=== PATIENT | male | born 1970 | race Caucasian/White ===

== ENCOUNTER 2024-03-31 11:24 | Emergency (ER) | payer OTHER, SELFPAY ==
[2024-03-31 11:25] VITALS: BMI 31.6
[2024-03-31 11:39] VITALS: BP 156/106
--- NOTE | 2024-03-31 11:39 | ED.GENMED ---
History of Present Illness
General
Chief Complaint: Blood Pressure Problem
Source: patient, ambulance crew and other ([facility] staff)
Exam Limitations: none
Time Seen by Provider: 03/31/24 11:29
Nursing documentation reviewed up to this point in time: agreed with
History of Present Illness
History of Present Illness:
53-year-old male with past medical history of hypertension, hyperlipidemia who presents from [facility] for evaluation of hypertension. Patient says that he feels fine�'I do not know why I am here.' I spoke with the staff
at [facility] they report that for the past few days he has been refusing to take any of his medications. Patient admits that he was previously on lisinopril as well as cholesterol medication and Abilify. He says that he
feels better when he does not take his medicine and so he does not want to take it. According to present staff his blood pressures have been running high and given his reported noncompliance they sent him to the emergency room to be evaluated.
Present staff also reports the patient has been 'selective' with most foods he eats and they are concerned he could be going on a hunger strike. He says that he is not on a hunger strike but that he is picking and choosing what foods he eats
because certain foods appear to be very greasy and he thinks that they could be poison or bad for him.
Past History
Past History
ED Past Medical History: HTN and Other (generalized anxiety disorder.)
Social History
Tobacco: Smoker
Living: with family
Review of Systems
Review of Systems
All Other Systems: ROS reviewed and negative except as documented in HPI and ROS
Constitutional: Denies fever
Respiratory: Denies trouble breathing
Cardiac: Denies chest pain
ABD/GI: Denies abdominal pain
Musculoskeletal: Denies neck pain or back pain
Neurological: Denies dizzy or headache
Phy Exam
Physical Exam
Physical Exam:
General: Awake, alert, oriented x3; no acute distress
Head: Normocephalic, atraumatic
Eyes: Conjunctiva normal, pupils equal round and reactive to light bilaterally
Throat: Airway intact, handling secretions
Neck: Trachea midline, supple without meningismus
Lungs: Clear to auscultation bilaterally, no wheezing, rales, rhonchi
Heart: Regular rate and rhythm, no murmurs, gallops, or rubs
Abd: Soft, non distended, nontender
Neuro: Cranial nerves intact, speech fluent, no motor or sensory deficits
Skin: no rash
Extremities: No edema in extremities, equal pulses in all extremities warm and well-perfused
Psych: Bizarre affect, reasonable insight
Scores
Heart Failure Risk
Heart Failure Risk Score: Not Applicable
Heart Score for Chest Pain Patients
STEMI patient?: Not applicable
Withdrawal Assessment of Alcohol
Withdrawal Assessment Completed?: Not applicable
Course
Orders/Labs/Results
Orders:
Orders
03/31/24 11:38
Electrocardiogram (*1) Urgent
Reason for Study: Hypertension, Benign
EKG- Treatment ONCE
03/31/24 11:42
Basic Metabolic Panel Urgent
Complete Blood Count/No Diff Urgent
Abnormal Lab Results
03/31/24
11:42
WBC 12.6 H 10^3/uL
(4.8-10.8)
MCH 31.3 H pg
(27.0-31.0)
MPV 12.8 H fL
(7.4-10.4)
BUN 26 H mg/dl
(9-20)
Glucose 115 H mg/dl
(70-99)
03/31/24 11:42
03/31/24 11:42
Vital Signs
Initial and Last Documented VS:
Initial Vital Signs
Temp Pulse Resp Pulse Ox
36.9 C 95 20 95
03/31/24 11:27 03/31/24 11:27 03/31/24 11:27 03/31/24 11:27
Last Documented Vital Signs
Temp Pulse Resp BP Pulse Ox
36.9 C 95 20 156/106 95
03/31/24 11:27 03/31/24 11:27 03/31/24 11:27 03/31/24 11:39 03/31/24 11:27
MDM/Problems Addressed
Differential Diagnosis Includes:
Hypertension
MDM/Problems Addressed:
53-year-old male presents to the emergency room from [facility] for evaluation of asymptomatic hypertension in the setting of noncompliance with his blood pressure medicine. Supposed to be taking lisinopril 10 mg p.o. daily but has been refusing for
the past few days according to present staff. He says that he is not taking it because he feels better when he is not taking it. He does not feel he needs it and is not worried about his blood pressure. I explained to him that if he leaves his
blood pressure elevated and does not treat it that he is putting himself at risk for heart attack and stroke which can cause or disability. He says 'I understand, I am not going to live forever and I do not want to take that medicine.' While
I disagree with his decision he does seem to have decision-making capacity at this point. He can fully explain back to me the dangers of leaving his blood pressure untreated as well as his rationale for not wanting to take his medicine. Will check
a screening EKG and blood work for completeness but we cannot force him to take his medicine--I reinforced however that it is my strong recommendation that he take his blood pressure elevation very seriously and that he take his medicine.
Regarding possible hunger strike�I discussed with [facility] staff there are concerns; he does make some odd remarks about his food sounds like his main concern is that is very greasy although he did briefly mention concern that it could be poisoned. I
asked if they were concerned that he might need psychiatric evaluation for this issue and they said that they are 'looking into it.' They do have access to psychiatric consultation there which they will consider; I spoke with our psychiatrist on
staff. Confirmed that they have access to psychiatric services. He appears well-nourished here and does not appear to be dehydrated.
Labs reviewed: CBC shows marginal leukocytosis�no signs or symptoms of infection. BMP no clinically significant abnormalities. Blood pressure elevated but only marginally. [facility] at this point I think he can be
discharged to present although I did recommend psychiatric assessment there if there are continued concerns about his behavior/refusal of treatment.
Chronic conditions affecting care:
Hypertension
Acute Exacerbation and/or Progression of Chronic Illness: HTN
*Pulse Oximetry
Patient hypoxic: no
*Critical Care Note
Total Time (30-74mins, 75-104mins- exclusive of procedures): Not Applicable
Data Reviewed
Source: patient and other ([facility] staff)
ED Attending Note
-
Portions of this chart may have been created with voice recognition software.� Occasional wrong word or��sound alike� substitutions may have occurred due to the inherent limitations of voice recognition software.
Discharge Plan
Departure
Patient Disposition: [facility]
Date of Disposition: 03/31/24
Time of Disposition: 12:31
Patient with high blood pressure during this ER visit?: Yes
Discharge Problem:
Hypertension
Instructions: BLOOD PRESSURE
Prescriptions:
No Action
Tricor:
PO DAILY
Abilify
5 mg PO DAILY
Aspir-Low
81 mg PO DAILY
Lisinopril
10 mg PO DAILY
Propranolol
20 mg PO DAILY
Referrals:
[facility] [Family Provider] - Follow up in 2-3 days
Activity Restrictions/Additional Instructions:
We strongly recommend that you take your blood pressure medicine�your blood pressure has been high and if you leave your blood pressure untreated it will lead to serious medical problems such as heart attack, stroke, or kidney failure.
Patient is medically cleared to return to [facility]; we recommend consultation with [facility] psychiatric team with any concerns regarding his behavior/refusal of care
Thank you for visiting the Emergency Department at [facility].
1. Please schedule a follow up appointment as directed. Call first thing tomorrow morning to make an appointment.
2. If indicated, please take your medications as instructed and indicated on discharge paperwork.
3. If any of your symptoms do not improve, or persist, or become more severe within 6-12 hours, please return to the emergency department for further care.
4. Please return to the emergency department if you develop a headache, neck pain/stiffness, fever greater than 100.4F, chest pain, shortness of breath, persistent nausea, vomiting, slurred speech, difficulty walking, numbness/tingling, weakness,
signs of infection or any other symptoms that are worrisome to you.
Please call [phone] if you have any questions.
Interventions
Interventions:
*Risk Screen - Suicide Last Done: 03/31/24 11:27
*General Assessment Last Done: 03/31/24 11:27
*Neglect/Abuse Screening Last Done: 03/31/24 11:27
ED- Cardiac Assessment Last Done: 03/31/24 11:50
ED- Neurological Assessment Last Done: 03/31/24 11:50
ED- Pulmonary Assessment Last Done: 03/31/24 11:50
Discharge Date and Time
Print Language: OCCITAN
[2024-03-31 11:52] LABS: Hematocrit 51.1 % (39.0-52.0); Hemoglobin 17.8 g/dL (13.0-18.0); Mean Corp Hgb Conc. 34.8 g/dL (33.0-37.0); Mean Corpuscular Hgb 31.3 pg (27.0-31.0); Mean Platelet Volume 12.8 fL (7.4-10.4); Platelet Count 206 10^3/uL (130-400); Red Blood Cell Count 5.68 10^6/uL (4.70-6.10); Red Cell Dist. Width 12.8 % (11.5-14.5); White Blood Cell Count 12.6 10^3/uL (4.8-10.8)
[2024-03-31 12:03] LABS: Blood Urea Nitrogen 26 mg/dl (9-20); Calcium 9.6 mg/dl (8.4-10.2); Carbon Dioxide 26 mmol/L (22-30); Chloride 106 mmol/L (98-107); Estimated Creatinine Clearance 107 ml/min; Glucose 115 mg/dl (70-99); Potassium 4.2 mmol/L (3.5-5.1); Sodium 143 mmol/L (135-145); eGFR > 60.00
[2024-03-31 12:43] VITALS: BP 145/96
== END 2024-03-31 12:47 ==
LOC: EMR 11:24
PROVIDERS: EMERGENCY PHYSICIAN Emergency Medicine
DX: I10 Essential (primary) hypertension (principal); E78.00 Pure hypercholesterolemia, unspecified; F41.1 Generalized anxiety disorder; F17.200 Nicotine dependence, unspecified, uncomplicated
CPT/HCPCS: 99283; 80048; 85027; 93005

== ENCOUNTER 2024-04-07 11:30 | Emergency (ER) | payer OTHER, SELFPAY ==
[2024-04-07 11:41] VITALS: BP 159/112
--- NOTE | 2024-04-07 13:05 | ED.GENMED ---
History of Present Illness
General
Chief Complaint: Psychiatric Problem
Source: patient and records
Exam Limitations: none
Time Seen by Provider: 04/07/24 12:29
Nursing documentation reviewed up to this point in time: agreed with
History of Present Illness
History of Present Illness:
53-year-old male hypertension mental illness been incarcerated for few weeks second visit in the ER for not eating tells me that the food is contaminated
Apparently not taking his blood pressure meds as well here few days ago with similar complaints, he knows he is at the hospital knows the year, he lives locally when he is not incarcerated
Past History
Past History
ED Past Medical History: HTN, Psychiatric and Other (generalized anxiety disorder.)
Social History
Tobacco: Smoker
Alcohol: None
Drug: None
Living: nursing home
Employment: Not employed
Review of Systems
Review of Systems
All Other Systems: Not applicable
EENT: Reports no symptoms
Respiratory: Reports no symptoms
Cardiac: Reports no symptoms
ABD/GI: Reports no symptoms
Psychiatric: Reports other (Somewhat delusional); Denies depression or suicidal
Phy Exam
Physical Exam
Physical Exam:
Physical Exam
General: no apparent distress, not acutely ill
Neck: No jaundice
Heart: s1/s2 regular rate and rhythm, no murmur. equal radial pulses.
Lungs: no acute respiratory distress. clear bilaterally
Abdomen: Nontender
Neuro: alert and oriented. no focal neurological deficits
Skin: no rash
Psychiatric: well kept. interactive and cooperative
Extremities: no edema. no calf tenderness. negative homans. good distal pulses
Course
Orders/Labs/Results
Orders:
Orders
04/07/24 12:55
Lisinopril [Zestril] 10 mg PO NOW STA
04/07/24 12:29
04/07/24 12:29
Vital Signs
Initial and Last Documented VS:
Initial Vital Signs
Temp Pulse Resp BP Pulse Ox
97.7 F 89 18 159/112 97
04/07/24 11:41 04/07/24 11:41 04/07/24 11:41 04/07/24 11:41 04/07/24 11:41
Last Documented Vital Signs
Temp Pulse Resp BP Pulse Ox
97.7 F 92 18 160/108 97
04/07/24 11:41 04/07/24 14:11 04/07/24 14:11 04/07/24 14:11 04/07/24 11:41
MDM/Problems Addressed
Differential Diagnosis Includes:
Hypertension mental illness
MDM/Problems Addressed:
Mental illness, malingering,
Chronic conditions affecting care:
Hypertension mental illness
*Critical Care Note
Total Time (30-74mins, 75-104mins- exclusive of procedures): Not Applicable
Update Note
Update Note:
Update no signs of significant malnourishment
Patient tells me he will eat some hospital food, he is refused blood work
Labs were few days ago are noted blood pressure is up today we will see if he will take his lisinopril
Update, patient refused to take lisinopril
He refused to eat blood pressure improved
ED Attending Note
-
Portions of this chart may have been created with voice recognition software.� Occasional wrong word or��sound alike� substitutions may have occurred due to the inherent limitations of voice recognition software.
Discharge Plan
Departure
Patient Disposition: Nursing Home
Date of Disposition: 04/07/24
Time of Disposition: 14:16
Patient with high blood pressure during this ER visit?: Yes
Condition: Good
Discharge Problem:
Refuses to eat, Hypertension
Instructions: Schizophrenia (DC)
Prescriptions:
No Action
Tricor:
PO DAILY
Abilify
5 mg PO DAILY
Aspir-Low
81 mg PO DAILY
Lisinopril
10 mg PO DAILY
Propranolol
20 mg PO DAILY
Referrals:
[facility] [Family Provider] -
Interventions
Interventions:
*Risk Screen - Suicide Last Done: 04/07/24 12:23
*General Assessment Last Done: 04/07/24 12:23
*Neglect/Abuse Screening Last Done: 04/07/24 12:23
ED- Fall Risk Assessment Last Done: 04/07/24 12:23
*ED COVID-19 Vaccine History Last Done: 04/07/24 12:23
ED-Psychological Assessment Last Done: 04/07/24 12:56
Discharge Date and Time
Print Language: ROMANIAN
[2024-04-07 14:11] VITALS: BP 160/108
== END 2024-04-07 14:40 ==
LOC: EMR 11:30
PROVIDERS: EMERGENCY PHYSICIAN Emergency Medicine
DX: F22 Delusional disorders (principal); F50.89 Other specified eating disorder; Z76.5 Malingerer [conscious simulation]; Z91.128 Patient's intentional underdosing of medication regimen for other reason; F41.1 Generalized anxiety disorder; I10 Essential (primary) hypertension; E11.9 Type 2 diabetes mellitus without complications; E78.5 Hyperlipidemia, unspecified; F17.200 Nicotine dependence, unspecified, uncomplicated
CPT/HCPCS: 99282

== ENCOUNTER 2024-04-17 12:06 | Emergency (ER) | payer OTHER, SELFPAY ==
[2024-04-17 12:11] VITALS: BP 119/98
--- NOTE | 2024-04-17 14:19 | ED.GENMED ---
History of Present Illness
General
Chief Complaint: Dehydration Symptoms
Source: patient and other ([facility] medical team)
Time Seen by Provider: 04/17/24 12:39
History of Present Illness
History of Present Illness:
53-year-old male from [facility] who presents after he was refusing to eat and drink. He has a 304 hearing tomorrow planned. He had told staff over there that he be willing to drink hospital water. Patient states that the shelter has
strict 9, sperm and fentanyl in the water and he refuses to drink it. Patient states that he does not trust our IV fluids. During history taking he does state he will drink her water small sodas ice chips in it. He does acknowledge that his mouth
is dry and that he is likely dehydrated but otherwise feels normal and that he has a right to refuse it. He reportedly has not been taking his medications as well. He is currently in a mental health wing at the shelter
Past History
Past History
ED Past Medical History: HTN, Psychiatric and Other (generalized anxiety disorder. Question bipolar)
Social History
Tobacco: Smoker
Alcohol: None
Drug: None
Living: shelter
Employment: Not employed
Phy Exam
Physical Exam
Physical Exam:
CONSTITUTIONAL Patient alert and oriented to person, place and time. Well-appearing. Vital signs reviewed. Dry mucous membranes, mucosa is severely dry in the mouth and oropharynx
HEAD atraumatic, normocephalic.
EYES eyelids normal to inspection, Pupils equally round and reactive to light, Extraocular muscles intact, Conjunctiva normal, Sclera normal.
NECK normal range of motion, Trachea midline, no jugular venous distention.
RESPIRATORY CHEST No respiratory distress noted, Chest expansion equal, Bilateral breath sounds clear.
CARDIOVASCULAR regular rate and rhythm, Heart sounds normal.
ABDOMEN abdomen nontender, Bowel sounds normal. No distention.
UPPER EXTREMITY range of motion normal, Motor strength normal, no cyanosis, no edema.
LOWER EXTREMITY range of motion normal, Motor strength normal, no cyanosis, no edema.
NEURO Speech normal, No focal motor deficits, [place] coma scale 15, Memory normal, Cranial Nerves intact to screening exam.
SKIN skin warm, dry, and normal in color.
PSYCHIATRIC patient oriented to person place and time, clearly paranoid
Course
Orders/Labs/Results
Orders:
Orders
04/17/24 13:15
Complete Blood Count/With Diff Urgent
Comprehensive Metabolic Panel Urgent
Magnesium Urgent
04/17/24 14:19
PSYCHIATRY CONSULT Urgent
Consulting Provider: Tyson Moore
Was physician already notified: Yes
Vital Signs
Initial and Last Documented VS:
Initial Vital Signs
Temp Pulse Resp BP Pulse Ox
95.7 F L 111 18 119/98 98
04/17/24 12:11 04/17/24 12:11 04/17/24 12:11 04/17/24 12:11 04/17/24 12:11
Last Documented Vital Signs
Temp Pulse Resp BP Pulse Ox
95.7 F L 111 18 119/98 98
04/17/24 12:11 04/17/24 12:11 04/17/24 12:11 04/17/24 12:11 04/17/24 12:11
MDM/Problems Addressed
MDM/Problems Addressed:
Paranoia psychiatric behavior, dehydration, dry mucous membrane
*Pulse Oximetry
Patient hypoxic: no
*Critical Care Note
Total Time (30-74mins, 75-104mins- exclusive of procedures): 40 minutes
Data Reviewed
Review of Other/Old Records Reveals: Labs (Prior labs reviewed)
Source: patient and police
Prescriptions/Medications Considered But Not Given:
IV fluids consider if patient refuses
Further Testing Considered But Not Given:
Consider labs but the patient refuses
Patient Management
Escalation/DeEscalation of care consider admission/obs:
Complicated cases patient adamantly refused IV fluids and oral fluids. At this point he is awake alert and oriented. He does have some paranoia and psychosis that is being handled at the shelter. He is for a 304 hearing tomorrow. Patient was also
seen by psychiatry who did not have anything more to add. I did explain to him the risk of severe dehydration. At this point I do see feel that it is warranted that we send him back to shelter for further psychiatric care. The patient is not in
extreme danger at this time but at some point will need hydration. Case was discussed with medical team at the shelter who will follow closely for his 304 hearing tomorrow
ED Attending Note
-
Portions of this chart may have been created with voice recognition software.� Occasional wrong word or��sound alike� substitutions may have occurred due to the inherent limitations of voice recognition software.
Discharge Plan
Departure
Patient Disposition: Home (Routine Discharge)
Date of Disposition: 04/17/24
Time of Disposition: 14:40
Patient with high blood pressure during this ER visit?: Yes
Discharge Problem:
Paranoid psychosis, Acute dehydration
Instructions: Dehydration, Adult (DC), BLOOD PRESSURE
Prescriptions:
No Action
Tricor:
PO DAILY
Abilify
5 mg PO DAILY
Aspir-Low
81 mg PO DAILY
Lisinopril
10 mg PO DAILY
Propranolol
20 mg PO DAILY
Referrals:
[facility] [Family Provider] -
Activity Restrictions/Additional Instructions:
Please see medical staff tomorrow as planned for further psychiatric evaluation. Please consider oral hydration as it is extremely important to maintain your hydration. Return immediately for any changes in mentation
Interventions
Interventions:
*Risk Screen - Suicide Last Done: 04/17/24 12:11
*General Assessment Last Done: 04/17/24 12:11
*Neglect/Abuse Screening Last Done: 04/17/24 12:11
*ED COVID-19 Vaccine History Last Done: 04/17/24 12:11
ED- Cardiac Assessment Last Done: 04/17/24 12:11
ED- Neurological Assessment Last Done: 04/17/24 12:11
ED- Pulmonary Assessment Last Done: 04/17/24 12:11
Discharge Date and Time
Print Language: QATARI
--- NOTE | 2024-04-17 15:25 | W.PN.UPDATE ---
Update Note
Progress Note Update
Pt brought over from [facility] due to refusing to eat or drink, reportedly has paranoid ideation about contaminants in the [facility] water. Pt has 304 hearing tomorrow; unclear what treatment he has received under 303. Psychiatry asked to assess. Upon
approach pt resting on stretcher in handcuffs and waist restraint. Pt alert, calm, making eye contact, alert. Pt uncooperative, immediately stated I was lying to him, that I was pretending there was some other reality, stated I know what is going
on. No agitation or threatening behavior. Speech coherent; no signs of kamran. Pt reportedly shows some signs of dehydration, with increased heart rate, although BP high due to not taking HTN meds.
Imp: Unspecified psychotic d/o, reportedly on 303 commitment, with 304 hearing tomorrow
Rec: would offer fluids in sealed containers to pt. If medically able, he should be discharged back to [facility] to attend his 304 hearing tomorrow. Involuntary mental health commitment should allow treatment of psychosis, with short-term injections
over pt's objection, if that diagnosis and acute need for treatment are agreed upon by 2 physicians.
== END 2024-04-17 15:05 | disposition home or self-care (01) ==
LOC: EMR 12:06
PROVIDERS: CONSULT PHYSICIAN Psychiatry & Neurology Psychiatry; EMERGENCY PHYSICIAN Emergency Medicine
DX: F22 Delusional disorders (principal); E86.0 Dehydration; I10 Essential (primary) hypertension; F41.1 Generalized anxiety disorder; F31.9 Bipolar disorder, unspecified; F17.200 Nicotine dependence, unspecified, uncomplicated; Z91.148 Patient's other noncompliance with medication regimen for other reason
CPT/HCPCS: 99284

== ENCOUNTER 2024-04-21 09:20 | Emergency (ER) | payer OTHER, SELFPAY ==
[2024-04-21] VITALS (7 sets, daily range): BP systolic 130–168; BP diastolic 77–121; BMI 27.2
[2024-04-21 09:47] LABS: % Basophils 0.2 % (0-2); % Eosinophils 0.7 % (0-6); % Immature Granulocytes 0.3 % (0-0.5); % Lymphocytes 23.3 % (20.5-51.1); % Monocytes 13.3 % (1.7-9.3); % Neutrophils 62.2 % (42.2-75.2); Absolute Eosinophils 0.1 10^3/uL (0-0.7); Absolute Lymphocytes 2.5 10^3/uL (1.2-3.4); Absolute Monocytes 1.4 10^3/uL (0.1-0.6); Absolute Neutrophils 6.6 10^3/uL (1.4-6.5); Hematocrit 56.6 % (39.0-52.0); Hemoglobin 18.9 g/dL (13.0-18.0); Mean Corp Hgb Conc. 33.4 g/dL (33.0-37.0); Mean Corpuscular Hgb 30.7 pg (27.0-31.0); Mean Corpuscular Volume 91.9 fL (80.0-94.0); Nucleated Red Blood Cells % 0 % (-); Platelet Count 166 10^3/uL (130-400); Red Blood Cell Count 6.16 10^6/uL (4.70-6.10); Red Cell Dist. Width 13.6 % (11.5-14.5); White Blood Cell Count 10.7 10^3/uL (4.8-10.8)
[2024-04-21 10:13] LABS: ALT (SGPT) 205 U/L (0-50); AST (SGOT) 136 U/L (17-59); Albumin 4.8 g/dl (3.5-5.0); Alkaline Phosphatase 179 U/L (38-126); Blood Urea Nitrogen 63 mg/dl (9-20); Calcium 9.9 mg/dl (8.4-10.2); Carbon Dioxide 21 mmol/L (22-30); Chloride 118 mmol/L (98-107); Estimated Creatinine Clearance 49 ml/min; Glucose 116 mg/dl (70-99); Potassium 4.3 mmol/L (3.5-5.1); Sodium 156 mmol/L (135-145); Total Bilirubin 1.6 mg/dl (0.2-1.3); Total Protein 7.7 g/dl (6.3-8.2); eGFR 51.52
--- NOTE | 2024-04-21 11:24 | CON.MD ---
Consultation - Medical
-
patient seen chart reviewed. discussed w dr bobby. reviewed dr lopez's assessment of april 17 2024. patient is a 53 year old male who was brought here from [facility]. he has not been eating or drinking. he was seen by dr lopez four
days ago for similar. at this point he is also not taking medications. a 304 petition has been filed to send him to [facility] and adjudication is pending. his labs show dehydration including sodium of 156 bun 63 creatinine of 1.6
hgb 18.9 likely the result of dehydration. his transaminases glucose and bp also elevated. the patient refuses to drink fluid. he had said he would drink from sealed bottles but when i presented him with two bottles of sealed cold water from the
vending machine he refused and started ranting that he had seen me before and ordering me to 'get out'. he has verbalized that the water is contaminated and this is not the first time he has spoken of fear of being poisoned. he has hx of psychotic
disorder rx w antipsychotics which he now refuses. the patient is not amenable to history taking but from the record there is clear hx of psychosis likely schizophrenia.
the details of his past psych hx unknown
medical hx hypertension hld bp is 157/121 see kaliliana abive ecg w nl qtc.
mental status grizzled disheveled male appearing older than his age. patient very agitated and angry. paranoid affect labile unable to test cognition or orientation as patient very uncooperative
dx unspecified psychosis likely schizophrenia
recommendations this patient is not competent to make medical decisions on his own behalf as his judgment is severely impaired due to psychosis. patient is at significant medical risk if he is not hydrated including the risks of dehydration itself
and the risk of hypertension without treatment in bp. if necessary suggest im zyprexa 10 mg and ativan 2 mg in order to sedate him sufficiently for an IV to accomplish hydration. 304 hopefully will be decided francisco j and transfer to [facility]
accomplished. clearly he needs psychiatric help but at this moment medical health takes precedence.
--- NOTE | 2024-04-21 11:26 | ED.GENMED ---
History of Present Illness
General
Chief Complaint: Abdominal Symptoms
Source: patient and other ([facility] guards, [facility] nurse)
Time Seen by Provider: 04/21/24 10:02
History of Present Illness
History of Present Illness:
53-year-old male brought to the emergency room by correctional guards due to refusal of taking food or drink. Patient states that he will not consume any of the food or liquid given to him at the present because it is poisoned with arsenic,
strychnine and 'cum'. The nurse at the present tells me that the patient has been evaluated by psychiatry and the psychiatrist speaks to him every day. They have been unable to convince him the eat, drink or take medication. The [facility] has
petition for a 304 (involuntary commitment to an inpatient facility for an extended period of time). This requires a hearing and this has not occurred yet. They did blood work yesterday and were concerned that his sodium is rising as is his renal
function. They believe it is unsafe for the patient to be without hydration pending the outcome of the trial.
Past History
Past History
ED Past Medical History: HTN, Psychiatric and Other (generalized anxiety disorder. Question bipolar)
Social History
Tobacco: Smoker
Alcohol: None
Drug: None
Living: [facility]
Employment: Not employed
Phy Exam
Physical Exam
Physical Exam:
General: Awake, Alert, Oriented X3. No acute distress.
Vitals: unremarkable
Head: Atraumatic
Eyes: Pupils equal, EOMI, sunken eyes
Throat: Airway intact, no exudates markedly dry mucosa
Neck: Trachea midline
Lungs: Clear and equal b/l
Heart: Regular rate, no murmurs
Abd: Soft, Nontender, No pulsatile mass
Neuro: Grossly nonfocal
Skin: Warm, dry, no rash
Extremities: pulses equal b/l, no edema
Course
Orders/Labs/Results
Orders:
Orders
04/21/24 09:27
Electrocardiogram (*1) Urgent
Reason for Study: Chest Pain
EKG- Treatment ONCE
04/21/24 09:35
Complete Blood Count/With Diff Urgent
Comprehensive Metabolic Panel Urgent
04/21/24 11:19
Lorazepam [Ativan] 2 mg IV NOW STA
Olanzapine [Zyprexa] 10 mg IM NOW STA
04/21/24 11:36
Sterile Water [Sterile Water For Injection] 10 ml .ROUTE .STK-MED ONE
04/21/24 11:52
Lorazepam [Ativan] 2 mg IM NOW STA
04/21/24 12:37
0.9% Sodium Chloride 1000 ml [Nss] 2,000 ml IV BOLUS
Abnormal Lab Results
04/21/24
09:35
RBC 6.16 H 10^6/uL
(4.70-6.10)
Hgb 18.9 H g/dL
(13.0-18.0)
Hct 56.6 H %
(39.0-52.0)
Absolute Neuts (auto) 6.6 H 10^3/uL
(1.4-6.5)
Absolute Monos (auto) 1.4 H 10^3/uL
(0.1-0.6)
Monocytes % 13.3 H %
(1.7-9.3)
Sodium 156 H mmol/L
(135-145)
Chloride 118 H mmol/L
(98-107)
Carbon Dioxide 21 L mmol/L
(22-30)
BUN 63 H mg/dl
(9-20)
Creatinine 1.6 H mg/dL
(0.7-1.3)
Glucose 116 H mg/dl
(70-99)
Total Bilirubin 1.6 H mg/dl
(0.2-1.3)
AST 136 H U/L
(17-59)
ALT 205 H U/L
(0-50)
Alkaline Phosphatase 179 H U/L
(38-126)
04/21/24 09:35
04/21/24 09:35
Vital Signs
Initial and Last Documented VS:
Initial Vital Signs
Temp Pulse Resp Pulse Ox
97.6 F 95 20 97
04/21/24 09:21 04/21/24 09:21 04/21/24 09:21 04/21/24 09:21
Last Documented Vital Signs
Temp Pulse Resp BP Pulse Ox
97.6 F 84 16 141/81 98
04/21/24 09:21 04/21/24 15:00 04/21/24 15:00 04/21/24 15:00 04/21/24 15:00
*Critical Care Note
Total Time (30-74mins, 75-104mins- exclusive of procedures): Not Applicable
ED Attending Note
-
Portions of this chart may have been created with voice recognition software.� Occasional wrong word or��sound alike� substitutions may have occurred due to the inherent limitations of voice recognition software.
Discharge Plan
Departure
Patient Disposition: Senior Living
Date of Disposition: 04/21/24
Time of Disposition: 13:02
Condition: Fair
Discharge Problem:
Acute dehydration, Acute hypernatremia
Instructions: Dehydration, Adult (DC)
Prescriptions:
No Action
Tricor:
PO DAILY
Abilify
5 mg PO DAILY
Aspir-Low
81 mg PO DAILY
Lisinopril
10 mg PO DAILY
Propranolol
20 mg PO DAILY
Referrals:
[facility] [Family Provider] -
Activity Restrictions/Additional Instructions:
Pt did start taking some ice chips and canned beverages here in the ER. He did receive two liters of ivf here and was given IM Zypresa and ativan.
Interventions
Interventions:
*Risk Screen - Suicide Last Done: 04/21/24 09:21
*General Assessment Last Done: 04/21/24 09:21
*Neglect/Abuse Screening Last Done: 04/21/24 09:21
ED- Fall Risk Assessment Last Done: 04/21/24 12:51
*Nursing Disposition Last Done: 04/21/24 15:43
[id number] Assessment Last Done: 04/21/24 11:00
Discharge Date and Time
Discharge Date/Time: 04/21/24 15:45
Print Language: TURKMEN
[2024-04-21] MEDS: ATIVAN 2 MG IM (11:52)
[2024-04-21] MEDS: ZYPREXA 10 MG IM (11:53)
[2024-04-21] MEDS: NSS 2000 IV (12:42)
== END 2024-04-21 15:45 ==
LOC: EMR 09:20
PROVIDERS: Surgery; EMERGENCY PHYSICIAN Emergency Medicine; OTHER PHYSICIAN Psychiatry & Neurology Psychiatry
DX: R45.1 Restlessness and agitation (principal); F29 Unspecified psychosis not due to a substance or known physiological condition; E86.0 Dehydration; E87.0 Hyperosmolality and hypernatremia; F41.1 Generalized anxiety disorder; Z91.128 Patient's intentional underdosing of medication regimen for other reason; Z91.119 Patient's noncompliance with dietary regimen due to unspecified reason; I10 Essential (primary) hypertension; E78.5 Hyperlipidemia, unspecified; F17.200 Nicotine dependence, unspecified, uncomplicated
CPT/HCPCS: 99284; 96360; 96372 ×2; 80053; 85025; 93005; J2358

== ENCOUNTER 2024-04-24 13:31 | Emergency (ER) | payer OTHER, SELFPAY ==
[2024-04-24 13:41] LABS: Glucose - Point of Care 119 mg/dl (70-99)
--- NOTE | 2024-04-24 14:29 | ED.GENMED ---
History of Present Illness
General
Chief Complaint: Failure to Thrive
Source: patient, ambulance crew, police and previous hospital records
Exam Limitations: none
Time Seen by Provider: 04/24/24 13:36
Nursing documentation reviewed up to this point in time: agreed with
History of Present Illness
History of Present Illness:
53-year-old male past medical history of hypertension hyperlipidemia, diabetes multiple psychiatric diagnoses presenting to the emergency department after refusing to eat or drink due to potential concerns of contamination. He denies any symptoms
otherwise at this time. He is currently being assessed for 304 and is assessed daily by psychiatric at the group home
Past History
Past History
ED Past Medical History: HTN, Psychiatric and Other (generalized anxiety disorder. Question bipolar)
Social History
Tobacco: Smoker
Alcohol: None
Drug: None
Living: group home
Employment: Not employed
Review of Systems
Review of Systems
Allergies reviewed?: Yes
All Other Systems: ROS reviewed and negative except as documented in HPI and ROS
Phy Exam
Physical Exam
Physical Exam:
GENERAL: Alert , in no apparent distress
EYE: pupils equal and reactive
NECK: Supple, no significant adenopathy.
ENT: o/p clr, mmm.
CARDIAC: Regular rate and rhythm .
LUNGS: Clear breath sounds bilaterally, no acute respiratory distress, no wheezes/rales/rhonchi
ABDOMEN: Soft, without focal tenderness, no r/g, no cvat
NEUROLOGICAL: Alert and oriented, no focal neuro deficits
SKIN: Warm and dry, skin intact.
MUSCULOSKELETAL: No edema, well perfused.
PSYCH: Normal speaking normally
Course
Orders/Labs/Results
Orders:
Abnormal Lab Results
04/24/24
13:39
POC Glucose 119 H mg/dl
(70-99)
Vital Signs
Initial and Last Documented VS:
Initial Vital Signs
Temp Pulse Resp Pulse Ox
98 F 104 18 96
04/24/24 13:35 04/24/24 13:35 04/24/24 13:35 04/24/24 13:35
Last Documented Vital Signs
Temp Pulse Resp Pulse Ox
98 F 104 18 96
04/24/24 13:35 04/24/24 13:35 04/24/24 13:35 04/24/24 13:35
MDM/Problems Addressed
MDM/Problems Addressed:
53-year-old male presenting to the emergency department today from the present due to lack of oral intake. Upon arrival here initial documented heart rate was slightly elevated however heart rate was in the 90s during my assessment. Other vital
signs are normal. Patient does have moist mucous membranes sugar level 119. Patient denies any current symptoms. He was willing to drink fluids and consume ice while here in the ER. Patient is refusing labs but also does not have any current
symptoms. Denies any symptoms at this time is in good spirits speaking normally and vital signs are normal patient appears stable for management at the group home
*Critical Care Note
Total Time (30-74mins, 75-104mins- exclusive of procedures): Not Applicable
ED Attending Note
-
Portions of this chart may have been created with voice recognition software.� Occasional wrong word or��sound alike� substitutions may have occurred due to the inherent limitations of voice recognition software.
Discharge Plan
Departure
Patient Disposition: Halfway
Date of Disposition: 04/24/24
Time of Disposition: 15:02
Patient with high blood pressure during this ER visit?: No
Condition: Good
Covid-19: Not Applicable
Discharge Problem:
Other symptoms and signs concerning food and fluid intake
Instructions: Dehydration, Adult ED
Prescriptions:
No Action
Tricor:
PO DAILY
Abilify
5 mg PO DAILY
Aspir-Low
81 mg PO DAILY
Lisinopril
10 mg PO DAILY
Propranolol
20 mg PO DAILY
Referrals:
[facility] [Family Provider] -
Activity Restrictions/Additional Instructions:
You came to the emergency department due to refusal to eat or drink. Here you drank multiple cups of water. Please continue to drink water and eat. Return for any ongoing issues.
Interventions
Interventions:
*General Assessment Last Done: 04/24/24 13:42
*Neglect/Abuse Screening Last Done: 04/24/24 13:42
ED- Fall Risk Assessment Last Done: 04/24/24 13:49
*ED COVID-19 Vaccine History Last Done: 04/24/24 13:48
Discharge Date and Time
Print Language: SCOTTISH
[2024-04-24 15:15] VITALS: BP 141/107
== END 2024-04-24 15:16 ==
LOC: EMR 13:31
PROVIDERS: EMERGENCY PHYSICIAN Student in an Organized Health Care Education/Training Program
DX: R62.7 Adult failure to thrive (principal); F41.1 Generalized anxiety disorder; I10 Essential (primary) hypertension; F31.9 Bipolar disorder, unspecified; E11.9 Type 2 diabetes mellitus without complications; E78.5 Hyperlipidemia, unspecified; F41.9 Anxiety disorder, unspecified; F17.200 Nicotine dependence, unspecified, uncomplicated
CPT/HCPCS: 99283; 82962

== ENCOUNTER 2024-04-27 12:52 | Emergency (ER) | payer OTHER, SELFPAY ==
[2024-04-27 12:56] VITALS: BP 158/112
--- NOTE | 2024-04-27 15:22 | ED.GENMED ---
History of Present Illness
General
Chief Complaint: Psychiatric Problem
Source: patient and other (jail staff)
Exam Limitations: none
History of Present Illness
History of Present Illness:
53-year-old male with history of hypertension, hyperlipidemia and psychosis who presents with a continued psychosis suspecting there is sperm in the water. The patient refuses to eat or drink at the jail. Patient refuses to eat or drink here in
the emergency department. Case was discussed with jail staff who states that they are hoping to place him in [facility]. The patient denies any complaints. He states that he knows they are trying to poison him. He is
aware that he could use some fluids that he is dehydrated but he refuses and wants to leave jail so he can take care of his own health.
Past History
Past History
ED Past Medical History: HTN, Psychiatric and Other (generalized anxiety disorder. Question bipolar)
Social History
Tobacco: Smoker
Alcohol: None
Drug: None
Living: jail
Employment: Not employed
Phy Exam
Physical Exam
Physical Exam:
CONSTITUTIONAL Vital signs reviewed, Patient alert and oriented to person, place and time. Tongue dry and cracked, mucous membranes dry
HEAD atraumatic, normocephalic.
EYES eyelids normal to inspection, Extraocular muscles intact, Conjunctiva normal, Sclera normal.
NECK normal range of motion, Trachea midline, no jugular venous distention.
RESP no respiratory distress
BACK No obvious deformities
UPPER EXTREMITY Gross Range of motion normal, gross motor strength normal
LOWER EXTREMITY Gross range of motion normal, Gross motor strength normal
NEURO Speech normal, No focal motor deficits include, Wisner coma scale 15, Memory normal, Cranial Nerves intact to screening exam.
SKIN Skin warm, dry, and normal in color.
PSYCHIATRIC poor judgment, poor insight
Course
Orders/Labs/Results
Orders:
Orders
04/27/24 15:35
Lorazepam [Ativan] 2 mg IM NOW STA
Olanzapine [Zyprexa] 10 mg IM NOW STA
04/27/24 15:36
0.9% Sodium Chloride 1000 ml [Nss] 2,000 ml IV BOLUS
04/27/24 15:45
Sterile Water [Sterile Water For Injection] 10 ml .ROUTE .STK-MED ONE
04/27/24 16:04
Complete Blood Count/With Diff Urgent
Comprehensive Metabolic Panel Urgent
04/27/24 16:37
Lactated Ringers [Lr] 1,000 ml IV BOLUS
Abnormal Lab Results
04/27/24
16:04
WBC 11.9 H 10^3/uL
(4.8-10.8)
MPV 13.6 H fL
(7.4-10.4)
Absolute Neuts (auto) 8.1 H 10^3/uL
(1.4-6.5)
Absolute Monos (auto) 1.2 H 10^3/uL
(0.1-0.6)
Lymphocytes % 20.2 L %
(20.5-51.1)
Monocytes % 10.3 H %
(1.7-9.3)
Sodium 158 H mmol/L
(135-145)
Chloride 122 H mmol/L
(98-107)
Carbon Dioxide 19 L mmol/L
(22-30)
BUN 44 H mg/dl
(9-20)
Glucose 108 H mg/dl
(70-99)
AST 63 H U/L
(17-59)
ALT 124 H U/L
(0-50)
Alkaline Phosphatase 275 H U/L
(38-126)
04/27/24 16:04
04/27/24 16:04
Vital Signs
Initial and Last Documented VS:
Initial Vital Signs
Temp Pulse Resp BP Pulse Ox
97.5 F 98 18 158/112 98
04/27/24 12:56 04/27/24 12:56 04/27/24 12:56 04/27/24 12:56 04/27/24 12:56
Last Documented Vital Signs
Temp Pulse Resp BP Pulse Ox
97.5 F 67 18 131/100 96
04/27/24 12:56 04/27/24 18:04 04/27/24 18:04 04/27/24 18:04 04/27/24 18:04
MDM/Problems Addressed
MDM/Problems Addressed:
Acute psychosis, hyponatremia, dehydration
*Pulse Oximetry
Patient hypoxic: no
*Critical Care Note
Total Time (30-74mins, 75-104mins- exclusive of procedures): 40 minutes
Data Reviewed
Source: patient and other (Shelter physician occupational therapy assistant)
Prescriptions/Medications Considered But Not Given:
Considered antihypertensives but blood pressure slightly improved
Patient Management
Escalation/DeEscalation of care consider admission/obs:
Case discussed at length with jail staff. Patient was deemed incompetent by our psychiatrist recently on the consultation. The patient remains that way. Present staff recommends to repeat IV fluids. Patient tolerated Zyprexa and Ativan without
difficulty. The patient was given IV fluids and appears well. Shelter staff notified and will follow-up for outpatient continued care at the jail and possibly inpatient psychiatric facility
ED Attending Note
-
Portions of this chart may have been created with voice recognition software.� Occasional wrong word or��sound alike� substitutions may have occurred due to the inherent limitations of voice recognition software.
Discharge Plan
Departure
Patient Disposition: Home (Routine Discharge)
Date of Disposition: 04/27/24
Time of Disposition: 16:48
Patient with high blood pressure during this ER visit?: Yes
Discharge Problem:
Dehydration, severe, Acute hypernatremia
Instructions: Dehydration, Adult ED
Prescriptions:
No Action
Tricor:
PO DAILY
Abilify
5 mg PO DAILY
Aspir-Low
81 mg PO DAILY
Lisinopril
10 mg PO DAILY
Propranolol
20 mg PO DAILY
Referrals:
[facility] [Family Provider] -
Activity Restrictions/Additional Instructions:
Christian was given Zyprexa and Ativan and given 1 L normal saline and 1 L of lactated Ringer's. Please follow-up for further hydration plan as discussed.
Interventions
Interventions:
*Risk Screen - Suicide Last Done: 04/27/24 12:56
*General Assessment Last Done: 04/27/24 12:56
*Neglect/Abuse Screening Last Done: 04/27/24 12:56
*Nursing Disposition Last Done: 04/27/24 18:05
ED-Psychological Assessment Last Done: 04/27/24 13:35
Discharge Date and Time
Discharge Date/Time: 04/27/24 18:06
Print Language: CYMRO
[2024-04-27] MEDS: ATIVAN 2 MG IM (15:48)
[2024-04-27] MEDS: ZYPREXA 10 MG IM (15:50)
[2024-04-27] MEDS: NSS 1000 IV (16:04)
[2024-04-27 16:23] LABS: % Basophils 0.3 % (0-2); % Eosinophils 0.4 % (0-6); % Immature Granulocytes 0.3 % (0-0.5); % Lymphocytes 20.2 % (20.5-51.1); % Monocytes 10.3 % (1.7-9.3); % Neutrophils 68.5 % (42.2-75.2); Absolute Eosinophils 0.1 10^3/uL (0-0.7); Absolute Lymphocytes 2.4 10^3/uL (1.2-3.4); Absolute Monocytes 1.2 10^3/uL (0.1-0.6); Absolute Neutrophils 8.1 10^3/uL (1.4-6.5); Hematocrit 51.5 % (39.0-52.0); Hemoglobin 17.4 g/dL (13.0-18.0); Mean Corp Hgb Conc. 33.8 g/dL (33.0-37.0); Mean Corpuscular Hgb 30.7 pg (27.0-31.0); Mean Platelet Volume 13.6 fL (7.4-10.4); Nucleated Red Blood Cells % 0 % (-); Platelet Count 147 10^3/uL (130-400); Red Blood Cell Count 5.66 10^6/uL (4.70-6.10); Red Cell Dist. Width 13.7 % (11.5-14.5); White Blood Cell Count 11.9 10^3/uL (4.8-10.8)
[2024-04-27 16:24] LABS: ALT (SGPT) 124 U/L (0-50); AST (SGOT) 63 U/L (17-59); Albumin 4.4 g/dl (3.5-5.0); Alkaline Phosphatase 275 U/L (38-126); Blood Urea Nitrogen 44 mg/dl (9-20); Calcium 9.9 mg/dl (8.4-10.2); Carbon Dioxide 19 mmol/L (22-30); Chloride 122 mmol/L (98-107); Glucose 108 mg/dl (70-99); Potassium 4.2 mmol/L (3.5-5.1); Sodium 158 mmol/L (135-145); Total Bilirubin 0.9 mg/dl (0.2-1.3); Total Protein 7.2 g/dl (6.3-8.2); eGFR > 60.00
[2024-04-27 16:33] VITALS: BP 141/91
[2024-04-27] MEDS: LR 1000 IV (17:03)
[2024-04-27 18:04] VITALS: BP 131/100
== END 2024-04-27 18:06 | disposition home or self-care (01) ==
LOC: EMR 12:52
PROVIDERS: EMERGENCY PHYSICIAN Emergency Medicine
DX: E87.1 Hypo-osmolality and hyponatremia (principal); E86.0 Dehydration; F17.200 Nicotine dependence, unspecified, uncomplicated; I10 Essential (primary) hypertension; E78.5 Hyperlipidemia, unspecified; F29 Unspecified psychosis not due to a substance or known physiological condition
CPT/HCPCS: 99291; 96360; 96361; 96372 ×2; 80053; 85025; J2358

== ENCOUNTER 2024-04-28 11:10 | Emergency (ER) | payer OTHER, SELFPAY ==
--- NOTE | 2024-04-28 11:12 | ED.GENMED ---
History of Present Illness
General
Chief Complaint: Failure to Thrive
Time Seen by Provider: 04/28/24 11:12
History of Present Illness
History of Present Illness:
HPI: Pt was seen here 3d in ED w/ psychosis symptoms - had been refusing to eat/drink at the snf. He was given Zyprexa and Ativan last ED visit. Very poor / limited historian.
EXAM:
GENERAL: Pt is poorly groomed / malodorous
HEENT: Extremely dry oral mucosa
CARDIOVASCULAR: Regular rate and rhythm
PULMONARY: No respiratory distress, breathing is nonlabored, equal and clear breath sounds
ABDOMEN: Soft and nontender with no peritoneal signs
NEUROLOGIC: Excellent strength all extremities; no coordination deficits
EXTREMITIES: Non tender; no edema
PYSCHIATRIC: Poor insight and judgement - I feel that he does not have the capacity to make his own decisions
TIME OF INITIAL ENCOUNTER: 11:30am
NUMBER AND COMPLEXITY OF PROBLEMS ADDRESSED AT THE ENCOUNTER
� Chronic conditions affecting care: Diabetes, high BP, hyperlipidemia
� Acute Exacerbation and/or Progression of Chronic Illness: This is an acute and worsening problem
� Differential Diagnosis includes: Hypernatremia, psychosis
AMOUNT AND/OR COMPLEXITY OF DATA TO BE REVIEWED AND ANALYZED
� I performed an independent evaluation of and my interpretation is:
EKG: sinus 65, QTc 458ms
CT:
X-rays:
Laboratory Studies: Na 155, BUN 39, Cr 1.2
Other:
� Review of other/old records: Na 158 from 3d ago
� Clinical information was obtained by an independent historian: I spoke to [facility] psychiatrist - see below; officers at bedside
� Prescriptions/Medications Considered but not given: Considered D5W IVF
� Further testing considered but not performed:
RISK OF COMPLICATIONS AND/OR MORBIDITY OR MORTALITY OF PATIENT MANAGEMENT
� Social determinants of health affecting care: Currently resides at [facility]
� Discussion with other providers: Spoke to the [facility] psychiatrist at 11:20am - requests Haldol / cogentin
� Escalation of care including admission/observation vs risk of discharge considered: I agree that it is appropriate to give antipsychotic against his will. Lacks insight and judgement. One liter NSS given due to dehydration.
BUN is improved compared to prior. After security called and w/ [facility] officers in room, labs obtained and meds given.
Past History
Past History
ED Past Medical History: HTN, Psychiatric and Other (generalized anxiety disorder. Question bipolar)
Social History
Tobacco: Smoker
Alcohol: None
Drug: None
Living: snf
Employment: Not employed
Phy Exam
Physical Exam
Physical Exam:
See HPI
Course
Orders/Labs/Results
Orders:
Orders
04/28/24 11:20
Haloperidol Lactate [Haldol] 5 mg IM NOW STA
04/28/24 11:23
Benztropine Mesylate [Cogentin] 1 mg IM NOW STA
04/28/24 12:28
Electrocardiogram (*1) Urgent
Reason for Study: QTc Monitoring
04/28/24 12:29
EKG- Treatment ONCE
04/28/24 12:32
Complete Blood Count/With Diff Urgent
Comprehensive Metabolic Panel Urgent
Abnormal Lab Results
04/28/24
12:32
MCV 94.4 H fL
(80.0-94.0)
MCHC 32.7 L g/dL
(33.0-37.0)
Absolute Monos (auto) 1.1 H 10^3/uL
(0.1-0.6)
Monocytes % 11.9 H %
(1.7-9.3)
Sodium 155 H mmol/L
(135-145)
Chloride 121 H mmol/L
(98-107)
BUN 39 H mg/dl
(9-20)
ALT 89 H U/L
(0-50)
Alkaline Phosphatase 202 H U/L
(38-126)
Total Protein 6.2 L g/dl
(6.3-8.2)
04/28/24 12:32
04/28/24 12:32
Vital Signs
Initial and Last Documented VS:
Initial Vital Signs
Temp Pulse Resp BP Pulse Ox
97.6 F 69 12 148/106 100
04/28/24 11:16 04/28/24 11:16 04/28/24 11:16 04/28/24 11:16 04/28/24 11:16
Last Documented Vital Signs
Temp Pulse Resp BP Pulse Ox
97.6 F 65 12 132/89 100
04/28/24 11:16 04/28/24 13:00 04/28/24 11:16 04/28/24 13:00 04/28/24 13:00
*Critical Care Note
Total Time (30-74mins, 75-104mins- exclusive of procedures): Not Applicable
ED Attending Note
-
Portions of this chart may have been created with voice recognition software.� Occasional wrong word or��sound alike� substitutions may have occurred due to the inherent limitations of voice recognition software.
Discharge Plan
Departure
Patient Disposition: [facility]
Date of Disposition: 04/28/24
Time of Disposition: 13:37
Discharge Problem:
Acute dehydration
Prescriptions:
No Action
lisinopril 20 mg Tablet
20 mg PO HS
haloperidol 1 mg Tablet
1 mg PO TID
Referrals:
[facility] [Family Provider] -
Activity Restrictions/Additional Instructions:
Sodium level is high at 155 but improved from 158 yesterday. BUN was very high 7d ago at 63, and now improved at 39. Creatinine is currently normal. We gave a liter of saline, 5mg of IM Haldol and 1mg of IM Cogentin. He is medically clear for
police custody / incarceration. Return here if worse.
Interventions
Interventions:
ED- Fall Risk Assessment Last Done: 04/28/24 11:20
*ED COVID-19 Vaccine History Last Done: 04/28/24 11:19
Discharge Date and Time
Print Language: LAO
[2024-04-28 11:15] VITALS: BMI 24.9
[2024-04-28 11:16] VITALS: BP 148/106
[2024-04-28 11:18] VITALS: BP 148/106
[2024-04-28 12:00] VITALS: BP 140/98
[2024-04-28] MEDS: COGENTIN 1 MG IM (12:25)
[2024-04-28] MEDS: HALDOL 5 MG IM (12:26)
[2024-04-28 13:00] VITALS: BP 132/89
[2024-04-28 13:11] LABS: ALT (SGPT) 89 U/L (0-50); AST (SGOT) 47 U/L (17-59); Albumin 3.7 g/dl (3.5-5.0); Alkaline Phosphatase 202 U/L (38-126); Blood Urea Nitrogen 39 mg/dl (9-20); Calcium 9.2 mg/dl (8.4-10.2); Carbon Dioxide 24 mmol/L (22-30); Chloride 121 mmol/L (98-107); Estimated Creatinine Clearance 70 ml/min; Glucose 91 mg/dl (70-99); Potassium 3.8 mmol/L (3.5-5.1); Sodium 155 mmol/L (135-145); Total Bilirubin 0.7 mg/dl (0.2-1.3); Total Protein 6.2 g/dl (6.3-8.2); eGFR > 60.00
[2024-04-28 13:29] LABS: % Basophils 0.2 % (0-2); % Eosinophils 1.6 % (0-6); % Immature Granulocytes 0.2 % (0-0.5); % Monocytes 11.9 % (1.7-9.3); % Neutrophils 58.1 % (42.2-75.2); Absolute Eosinophils 0.1 10^3/uL (0-0.7); Absolute Lymphocytes 2.6 10^3/uL (1.2-3.4); Absolute Monocytes 1.1 10^3/uL (0.1-0.6); Absolute Neutrophils 5.5 10^3/uL (1.4-6.5); Hematocrit 48.6 % (39.0-52.0); Mean Corp Hgb Conc. 32.7 g/dL (33.0-37.0); Mean Corpuscular Hgb 30.9 pg (27.0-31.0); Mean Corpuscular Volume 94.4 fL (80.0-94.0); Nucleated Red Blood Cells % 0 % (-); Red Blood Cell Count 5.21 10^6/uL (4.70-6.10); Red Cell Dist. Width 13.6 % (11.5-14.5); White Blood Cell Count 9.5 10^3/uL (4.8-10.8)
[2024-04-28 14:34] LABS: Mean Platelet Volume 13.6 fL (7.4-10.4); Platelet Count 119 10^3/uL (130-400)
[2024-04-28 16:00] VITALS: BP 131/88
== END 2024-04-28 16:04 ==
LOC: EMR 11:10
PROVIDERS: EMERGENCY PHYSICIAN Emergency Medicine
DX: E86.0 Dehydration (principal); F17.200 Nicotine dependence, unspecified, uncomplicated; E11.9 Type 2 diabetes mellitus without complications; E78.5 Hyperlipidemia, unspecified
CPT/HCPCS: 99284; 96372 ×2; 80053; 85025; 93005; J0515

== ENCOUNTER 2024-05-01 11:16 | Emergency (ER) | payer OTHER, SELFPAY ==
[2024-05-01 11:21] VITALS: BP 158/99
--- NOTE | 2024-05-01 11:28 | ED.GENMED ---
History of Present Illness
General
Chief Complaint: Failure to Thrive
Source: patient, records and ambulance crew
Time Seen by Provider: 05/01/24 11:20
History of Present Illness
History of Present Illness:
53-year-old male with past medical history of psychosis (thought to be possible schizophrenia), hypertension, hyperlipidemia, diabetes presenting to the emergency department from [facility] for evaluation of failure to
thrive. Patient's history is very limited secondary to chronic psychiatric issues. Patient reportedly has been refusing to eat or drink and has been to this emergency department for similar multiple times over this past month and found to be
hypernatremic as well as significant prerenal azotemia on labs but was ultimately always sent back to [facility]. Patient was seen by 2 separate psychiatrists here and is also under the care of of the psychiatrist at the
correctional facility. It is unclear as to if the patient is currently taking medications but it was noted that he was treated here with intramuscular medications on previous visits. At present time patient is without complaints and states that he
did have some cranberry juice prior to coming to the hospital and is also requesting something to drink. currently.
Past History
Past History
ED Past Medical History: HTN, Hypercholesterolemia, NIDDM, Psychiatric and Other (generalized anxiety disorder. Question bipolar)
ED Past Surgical History: None
Social History
Tobacco: Smoker
Alcohol: None
Drug: Former user
Living: jail
Employment: Not employed
Review of Systems
Review of Systems
All Other Systems: ROS reviewed and negative except as documented in HPI and ROS
Phy Exam
Physical Exam
Physical Exam:
GENERAL: Alert , in no apparent distress
EYE: conjunctiva clear
NECK: Supple
ENT: o/p clr, mmm. no thrush
CARDIAC: Regular rate and rhythm
LUNGS: Clear breath sounds bilaterally, no acute respiratory distress, no wheezes/rales/rhonchi
Abdomen: Soft, nontender, nondistended
NEUROLOGICAL: Alert and oriented
SKIN: Warm and dry, skin intact.
MUSCULOSKELETAL: well perfused.
PSYCH: Normal and appropriate interaction.
Scores
Heart Failure Risk
Heart Failure Risk Score: Not Applicable
Heart Score for Chest Pain Patients
STEMI patient?: Not applicable
Withdrawal Assessment of Alcohol
Withdrawal Assessment Completed?: Not applicable
Course
Orders/Labs/Results
Orders:
Orders
05/01/24 11:46
Complete Blood Count/With Diff Urgent
Comprehensive Metabolic Panel Urgent
Abnormal Lab Results
05/01/24
11:46
Plt Count 123 L 10^3/uL
(130-400)
MPV 13.1 H fL
(7.4-10.4)
Absolute Monos (auto) 0.9 H 10^3/uL
(0.1-0.6)
Monocytes % 10.0 H %
(1.7-9.3)
Sodium 154 H mmol/L
(135-145)
Chloride 117 H mmol/L
(98-107)
BUN 35 H mg/dl
(9-20)
Glucose 147 H mg/dl
(70-99)
AST 73 H U/L
(17-59)
ALT 93 H U/L
(0-50)
Alkaline Phosphatase 220 H U/L
(38-126)
05/01/24 11:46
05/01/24 11:46
Vital Signs
Initial and Last Documented VS:
Initial Vital Signs
Temp Pulse Resp BP Pulse Ox
98.6 F 64 20 158/99 99
05/01/24 11:21 05/01/24 11:21 05/01/24 11:21 05/01/24 11:21 05/01/24 11:21
Last Documented Vital Signs
Temp Pulse Resp BP Pulse Ox
98.6 F 64 20 158/99 99
05/01/24 11:21 05/01/24 11:21 05/01/24 11:21 05/01/24 11:21 05/01/24 11:21
MDM/Problems Addressed
Differential Diagnosis Includes:
electrolyte disturbance, dehydration, psychosis
MDM/Problems Addressed:
53-year-old male presenting emergency department for reported failure to thrive. Patient was seen here recently with refusing to eat or drink, today seems amenable to both eating and drinking. It was noted on previous labs that he had
hypernatremia and significant prerenal azotemia that was improving on lab rechecks. Patient does not seem to be in any acute distress here and is hemodynamically stable. He is willing to drink some cranberry juice here as well as have ice chips.
He is allowing us to check blood to repeat his sodium level as well as BUN/creatinine. Anticipate disposition back to [facility]
Chronic conditions affecting care: Psychiatric illness
*Pulse Oximetry
Patient hypoxic: no
*Critical Care Note
Total Time (30-74mins, 75-104mins- exclusive of procedures): Not Applicable
Data Reviewed
Review of Other/Old Records Reveals: Labs and Records
Source: patient, records and ambulance crew
Patient Management
Escalation/DeEscalation of care consider admission/obs:
Patient's sodium is 154, down from 155 3 days ago. BUN is 35 which is also down from 39 3 days ago. Patient is tolerating p.o. and in no acute distress. He is medically cleared to go back to [facility]. Patient tolerated
ice chips and juice since his arrival to the ER.
ED Attending Note
-
Portions of this chart may have been created with voice recognition software.� Occasional wrong word or��sound alike� substitutions may have occurred due to the inherent limitations of voice recognition software.
Discharge Plan
Departure
Patient Disposition: Group Home
Date of Disposition: 05/01/24
Time of Disposition: 12:29
Discharge Problem:
Hypernatremia
Prescriptions:
No Action
lisinopril 20 mg Tablet
20 mg PO HS
haloperidol 1 mg Tablet
1 mg PO TID
Referrals:
[facility] [Family Provider] -
Activity Restrictions/Additional Instructions:
Patient is medically cleared for incarceration
Interventions
Interventions:
*Risk Screen - Suicide Last Done: 05/01/24 11:21
*General Assessment Last Done: 05/01/24 11:21
*Neglect/Abuse Screening Last Done: 05/01/24 11:21
ED- Fall Risk Assessment Last Done: 05/01/24 11:42
*Nursing Disposition Last Done: 05/01/24 12:36
Discharge Date and Time
Print Language: SYRIAC
[2024-05-01 12:24] LABS: ALT (SGPT) 93 U/L (0-50); AST (SGOT) 73 U/L (17-59); Albumin 3.9 g/dl (3.5-5.0); Alkaline Phosphatase 220 U/L (38-126); Blood Urea Nitrogen 35 mg/dl (9-20); Calcium 9.2 mg/dl (8.4-10.2); Carbon Dioxide 27 mmol/L (22-30); Chloride 117 mmol/L (98-107); Glucose 147 mg/dl (70-99); Potassium 3.7 mmol/L (3.5-5.1); Sodium 154 mmol/L (135-145); Total Bilirubin 0.8 mg/dl (0.2-1.3); Total Protein 6.4 g/dl (6.3-8.2); eGFR > 60.00
[2024-05-01 12:29] LABS: % Basophils 0.3 % (0-2); % Eosinophils 1.2 % (0-6); % Immature Granulocytes 0.4 % (0-0.5); % Neutrophils 66.1 % (42.2-75.2); Absolute Eosinophils 0.1 10^3/uL (0-0.7); Absolute Lymphocytes 2.1 10^3/uL (1.2-3.4); Absolute Monocytes 0.9 10^3/uL (0.1-0.6); Absolute Neutrophils 6.1 10^3/uL (1.4-6.5); Hematocrit 48.1 % (39.0-52.0); Hemoglobin 16.1 g/dL (13.0-18.0); Mean Corp Hgb Conc. 33.5 g/dL (33.0-37.0); Mean Corpuscular Hgb 30.6 pg (27.0-31.0); Mean Corpuscular Volume 91.4 fL (80.0-94.0); Mean Platelet Volume 13.1 fL (7.4-10.4); Nucleated Red Blood Cells % 0 % (-); Platelet Count 123 10^3/uL (130-400); Red Blood Cell Count 5.26 10^6/uL (4.70-6.10); Red Cell Dist. Width 13.9 % (11.5-14.5); White Blood Cell Count 9.3 10^3/uL (4.8-10.8)
== END 2024-05-01 14:47 ==
LOC: EMR 11:16
PROVIDERS: Physician Assistant Medical; EMERGENCY PHYSICIAN Emergency Medicine
DX: E87.0 Hyperosmolality and hypernatremia (principal); R62.7 Adult failure to thrive; F29 Unspecified psychosis not due to a substance or known physiological condition; E11.9 Type 2 diabetes mellitus without complications; E78.00 Pure hypercholesterolemia, unspecified; I10 Essential (primary) hypertension; F41.1 Generalized anxiety disorder; F17.200 Nicotine dependence, unspecified, uncomplicated
CPT/HCPCS: 99283; 80053; 85025